=== PATIENT | female | born 1990 | race Hispanic/Latino ===

== ENCOUNTER 2023-01-12 19:19 | Emergency (ER) | payer MEDICAID, OTHER ==
[~2023-01-12] VITALS: Ht 162.6 cm; Wt 62.1 kg
[2023-01-12] MEDS ORDERED: ONDANSETRON 4MG INJ IV ONE (19:30)
[2023-01-12] MEDS ORDERED: MORPHINE 4 MG SYG IVP ONE (19:30)
[2023-01-12] MEDS ORDERED: ACETAMINOPHEN 500 MG TABLET ONE (19:48)
[2023-01-12 20:00] LABS: BASOPHILS % (AUTO) 0.5 % (0.0-5.0); HEMATOCRIT 37.4 % (36-48); LYMPHOCYTES % (AUTO) 11.9 % (21.0-51.0); MEAN CORPUSCULAR HEMOGLOBIN 31.9 pg (27.0-33.0); MEAN CORPUSCULAR HGB CONC 34.8 g/dL (32.0-36.0); MEAN CORPUSCULAR VOLUME 91.9 fL (79-99); MONOCYTES % (AUTO) 5.9 % (3.0-13.0); PLATELET COUNT (AUTO) 46 K/uL (130-400); RED BLOOD CELL COUNT(AUTO) 4.07 MIL/uL (4.00-5.50); RED CELL DISTRIBUTION WIDTH 12.1 % (11.0-15.5)
[2023-01-12] MEDS ORDERED: 0.9%NACL 1000ML 1,000 ML IV ONE (20:00)
[2023-01-12] MEDS ORDERED: IBUPROFEN 400 MG TABLET PO ONE (20:00)
[2023-01-12 20:16] LABS: CREATININE 0.8 mg/dL (0.5-1.5); POTASSIUM 3.2 mmol/L (3.5-5.1)
[2023-01-12 20:20] LABS: ALBUMIN 2.9 g/dL (3.5-5.0); TOTAL PROTEIN, SERUM 5.9 g/dL (6.0-8.3)
[2023-01-12] MEDS ORDERED: MORPHINE 4 MG SYG IVP SCH (21:00)
[2023-01-12 21:08] LABS: APPEARANCE,URINE CLEAR (CLEAR); BACTERIA,URINE RARE /HPF (None Seen); BILIRUBIN,URINE NEGATIVE (NEGATIVE); COLOR,URINE YELLOW (YELLOW); GLUCOSE, URINE (UA) NEGATIVE (NEGATIVE); KETONES,URINE 60 mg/dL (NEGATIVE); LEUKOCYTE ESTERASE ,URINE NEGATIVE Leu/uL (NEGATIVE); MUCUS,URINE FEW LPF (None Seen); NITRATE,URINE NEGATIVE (NEGATIVE); PH,URINE 6.5 (5.0-8.0); PROTEIN,URINE 70 mg/dL (NEGATIVE); SQUAMOUS EPITHELIAL CELL,UR FEW /HPF (0-2); UROBILINOGEN,URINE 12 mg/dL (0.2-1.0); YEAST,URINE BUDDING FEW /HPF (None Seen)
[2023-01-12 21:15] LABS: HCG,QUALITATIVE URINE NEGATIVE (NEGATIVE)
[2023-01-12 21:17] LABS: PLATELET MORPHOLOGY COMMENT MARKED DECREASE
[2023-01-12] MEDS ORDERED: ACETAMINOPHEN 500 MG TABLET PO ONE (21:30)
[2023-01-12] MEDS ORDERED: NIRM1TAB5 PO (22:13)
[2023-01-12] MEDS ORDERED: SULF1TAB42 PO (22:13)
[2023-01-12 23:35] LABS: APPEARANCE,CSF CLEAR (CLEAR); COLOR,CSF COLORLESS (COLORLESS); CSF TUBE NUMBER 1; GLUCOSE, CSF 55 mg/dL (40-70); TOTAL PROTEIN, CSF 17 mg/dL (15-45); WHITE BLOOD CELL1,CSF 0 CMM (0-5)
[2023-01-12 23:36] LABS: RED BLOOD CELL1,CSF 255 CMM (0-0)
[2023-01-12 23:53] LABS: APPEARANCE2,CSF CLEAR (CLEAR); COLOR2,CSF COLORLESS (COLORLESS); CSF 2ND TUBE NUMBER 4
[2023-01-13] MEDS ORDERED: MECLIZINE HCL 25 MG TABLET PO ONE ×2 (00:30)
[2023-01-13] MEDS ORDERED: ONDANSETRON ODT 4MG TAB ONE (01:39)
[2023-01-13] MEDS ORDERED: ONDANSETRON ODT 4MG TAB SL ONE (02:00)
[2023-01-13] MEDS ORDERED: HYDROMORPHONE 1 MG INJ IVP ONE (02:30)
[2023-01-13] MEDS ORDERED: KETOROLAC 15MG/ML VIAL (15MG/ML) IV ONE (02:30)
[2023-01-13] MEDS ORDERED: DEXAMETHASONE SOD PHOSPHATE 4 MG/ML 1ML VIAL IVP ONE (02:30)
[2023-01-13] MEDS ORDERED: METOCLOPRAMIDE 10 MG/2 ML VIAL IVP ONE (02:30)
[2023-01-13] MEDS ORDERED: DiphenhydrAMINE HCL 50 MG/ML VIAL IVP ONE (02:30)
[2023-01-13] MEDS ORDERED: PROMETHAZINE HCL 25 MG/ML 1ML AMPULE SCH (02:30)
[2023-01-13] MEDS ORDERED: OXYC-38 PO (03:08)
[2023-01-13 03:42] VITALS: BP 95/58
== END 2023-01-13 03:34 | disposition home or self-care (01) ==
LOC: EDH 19:19
DX: U07.1 COVID-19 (principal); N39.0 Urinary tract infection, site not specified; G43.909 Migraine, unspecified, not intractable, without status migrainosus
CPT/HCPCS: 99285; 96374; 96361; 87635; 96375 ×2; 82945; 83735; 84157; 80053; 85025; 89051 ×2; 87040 ×2; 87205; 87804 ×2; 83605; 87147; 81001; 81025; 36415; 87071; 87880; 70450; C9803; J7030; J2405; J2270; J1100; J1200; J2550; J2765; J1885

== ENCOUNTER 2023-01-15 16:05 | Inpatient (IN) | payer OTHER ==
[~2023-01-15] VITALS: Ht 152.4 cm; Wt 69.7 kg
[~2023-01-15 16:05] MED LIST: NIRM1TAB5 PO; OXYC-38 PO; SULF1TAB42 PO
[2023-01-15] MEDS ORDERED: ZOSYN 3.375GM+NS 50ML 50 ML IVPB STA (16:52)
[2023-01-15] MEDS ORDERED: PROCHLORPERAZINE EDISYLATE 5 MG/ML 2 ML VIAL IVP ONE (17:00)
[2023-01-15] MEDS ORDERED: DiphenhydrAMINE HCL 50 MG/ML VIAL IV ONE (17:00)
[2023-01-15] MEDS ORDERED: 0.9%NACL 1000ML 1,365 ML IV ONE ×2 (17:00→19:30)
[2023-01-15] MEDS ORDERED: ACETAMINOPHEN 650 MG SUPPOSITORY RC ONE (17:00)
[2023-01-15 17:18] LABS: BASOPHILS % (AUTO) 0.5 % (0.0-5.0); EOSINOPHILS % (AUTO) 0.1 % (0.0-8.0); HEMATOCRIT 35.7 % (36-48); LYMPHOCYTES % (AUTO) 11.1 % (21.0-51.0); MEAN CORPUSCULAR HEMOGLOBIN 32.1 pg (27.0-33.0); MEAN CORPUSCULAR HGB CONC 34.7 g/dL (32.0-36.0); MEAN CORPUSCULAR VOLUME 92.5 fL (79-99); MONOCYTES % (AUTO) 1.7 % (3.0-13.0); NEUTROPHILS % (AUTO) 81.6 % (40.0-77.0); PLATELET COUNT (AUTO) 25 K/uL (130-400); RED BLOOD CELL COUNT(AUTO) 3.86 MIL/uL (4.00-5.50); RED CELL DISTRIBUTION WIDTH 12.7 % (11.0-15.5); WHITE BLOOD COUNT (AUTO) 7.7 K/uL (4.8-10.8)
[2023-01-15 17:31] LABS: CREATININE 0.9 mg/dL (0.5-1.5); POTASSIUM 3.3 mmol/L (3.5-5.1)
[2023-01-15] MEDS ORDERED: PROCHLORPERAZINE 10MG/2ML INJ ONE (17:32)
[2023-01-15 17:36] LABS: ALBUMIN 2.4 g/dL (3.5-5.0); TOTAL PROTEIN, SERUM 5.4 g/dL (6.0-8.3)
[2023-01-15 19:22] LABS: APPEARANCE,URINE CLOUDY (CLEAR); BILIRUBIN,URINE NEGATIVE (NEGATIVE); COLOR,URINE YELLOW (YELLOW); GLUCOSE, URINE (UA) NEGATIVE (NEGATIVE); KETONES,URINE 10 mg/dL (NEGATIVE); LEUKOCYTE ESTERASE ,URINE NEGATIVE Leu/uL (NEGATIVE); NITRATE,URINE NEGATIVE (NEGATIVE); OCCULT BLOOD,URINE SMALL (NEGATIVE); PH,URINE 5.5 (5.0-8.0); PROTEIN,URINE 20 mg/dL (NEGATIVE); UROBILINOGEN,URINE 0.2 mg/dL (0.2-1.0)
[2023-01-15 19:29] LABS: BACTERIA,URINE RARE /HPF (None Seen); RBC,URINE 0-1 /HPF (0-1); SQUAMOUS EPITHELIAL CELL,UR MOD /HPF (0-2); YEAST,URINE BUDDING FEW /HPF (None Seen)
[2023-01-15] MEDS ORDERED: HYDROMORPHONE 1 MG INJ IV PRN (19:30)
[2023-01-15] MEDS ORDERED: MORPHINE 2 MG SYG IV PRN (19:30)
[2023-01-15] MEDS ORDERED: KETOROLAC 30MG VIAL (30MG/ML) IVP ONE (19:30)
[2023-01-15] MEDS ORDERED: ACETAMINOPHEN 325 MG TAB PO PRN ×2 (19:30)
[2023-01-15 19:41] LABS: ABG OXYGEN SATURATION 87.1 % (95.0-99.0); BASE EXCESS,VENOUS BLOOD GAS -2.2 (-2.0-3.0); HCO3,VENOUS BLOOD GAS 20.5 (21.0-28.0); PCO2,VENOUS BLOOD GAS 30 (32-45); PH,VENOUS BLOOD GAS 7.454 (7.350-7.450)
[2023-01-15 19:43] LABS: HCG,QUALITATIVE URINE NEGATIVE (NEGATIVE)
[2023-01-15 20:00] LABS: AMPHET/METH SCREEN,URINE NEGATIVE (NEGATIVE); BARBITURATE SCREEN, URINE NEGATIVE (NEGATIVE); BENZODIAZEPINES SCREEN,URINE NEGATIVE (NEGATIVE); CANNABINOID SCREEN,URINE POSITIVE (NEGATIVE); COCAINE SCREEN,URINE NEGATIVE (NEGATIVE); OPIATE SCREEN,URINE NEGATIVE (NEGATIVE); PHENCYCLIDINE SCREEN,URINE NEGATIVE (NEGATIVE)
[2023-01-15] MEDS ORDERED: POTASSIUM CHLORIDE 20MEQ/100ML 100 ML IV PRN (20:00)
[2023-01-15] MEDS ORDERED: LIDOCAINE HCL-MPF 1% 2ML VIAL IV PRN (20:00)
[2023-01-15] MEDS ORDERED: MAGNESIUM 2GM PREMIX 50ML 50 ML IV PRN (20:00)
[2023-01-15 20:07] LABS: INR 1.13 (0.85-1.15); PROTHROMBIN TIME 12.2 SEC (9.6-11.6)
[2023-01-15 20:09] LABS: PARTIAL THROMBOPLASTIN TIME 37.7 SEC (26.3-35.5)
[2023-01-15] MEDS: CEFTRIAXONE 1G VIAL IV SCH (20:25)
[2023-01-15] MEDS: 0.9%NACL 1000ML 1,000 ML IV SCH (20:25)
[2023-01-15] MEDS: DOXYCYCLINE 100MG+NS 250ML 250 ML IV SCH (20:25)
[2023-01-15] MEDS: POTASSIUM CHLORIDE 10% ELIXIR 20 MEQ/15 ML UDCUP PO PRN ×2 (20:52→23:13)
[2023-01-15] MEDS: FAMOTIDINE 20MG VIAL IV SCH (20:53)
[2023-01-15] MEDS ORDERED: NOREPINEPHRIN 4MG/NS 250ML 250 ML IV ONE (21:09)
[2023-01-15] MEDS: NOREPINEPHRIN 4MG/NS 250ML 250 ML IV SCH ×2 (21:30→22:04)
[2023-01-15] MEDS ORDERED: NOREPINEPHRIN 4MG/NS 250ML 250 ML IV SCH (21:30)
[2023-01-15] MEDS ORDERED: ALBUMIN (HUMAN) 25% 100 ML IV SCH (21:30)
[2023-01-16] VITALS (75 sets, daily range): BP systolic 86–129; BP diastolic 44–87
[2023-01-16] MEDS: ONDANSETRON 4MG INJ IV PRN (03:02)
[2023-01-16 04:49] LABS: BASOPHILS % (AUTO) 0.4 % (0.0-5.0); EOSINOPHILS % (AUTO) 0.1 % (0.0-8.0); HEMATOCRIT 31.4 % (36-48); LYMPHOCYTES % (AUTO) 13.9 % (21.0-51.0); MEAN CORPUSCULAR HEMOGLOBIN 31.7 pg (27.0-33.0); MEAN CORPUSCULAR HGB CONC 34.7 g/dL (32.0-36.0); MEAN CORPUSCULAR VOLUME 91.3 fL (79-99); MONOCYTES % (AUTO) 2.3 % (3.0-13.0); NEUTROPHILS % (AUTO) 78.9 % (40.0-77.0); PLATELET COUNT (AUTO) 28 K/uL (130-400); RED BLOOD CELL COUNT(AUTO) 3.44 MIL/uL (4.00-5.50); RED CELL DISTRIBUTION WIDTH 12.8 % (11.0-15.5); WHITE BLOOD COUNT (AUTO) 9.5 K/uL (4.8-10.8)
[2023-01-16 05:06] LABS: CREATININE 0.7 mg/dL (0.5-1.5); MAGNESIUM 1.8 mg/dL (1.80-2.40); PHOSPHORUS 1.6 mg/dL (2.5-4.9)
[2023-01-16] MEDS: KCL 20 MEQ ERTAB PO PRN ×2 (05:33→09:43)
[2023-01-16] MEDS: DOXYCYCLINE 100MG+NS 250ML 250 ML IV SCH ×2 (07:41→19:46)
[2023-01-16] MEDS: FAMOTIDINE 20MG VIAL IV SCH ×2 (07:41→19:46)
[2023-01-16] MEDS: 0.9%NACL 1000ML 1,000 ML IV SCH ×3 (07:42→23:55)
[2023-01-16] MEDS: NOREPINEPHRIN 4MG/NS 250ML 250 ML IV SCH (07:42)
[2023-01-16 09:09] LABS: ACETAMINOPHEN 11 mcg/mL (10-30)
[2023-01-16 09:10] LABS: ALBUMIN 1.9 g/dL (3.5-5.0); BILIRUBIN,DIRECT 0.8 mg/dL (0.0-0.3); TOTAL PROTEIN, SERUM 4.4 g/dL (6.0-8.3)
[2023-01-16 09:28] LABS: SALICYLATE < 2.8 mg/dL (2.8-20.0)
[2023-01-16] MEDS: KETOROLAC 15MG/ML VIAL (15MG/ML) IV PRN (14:43)
[2023-01-16] MEDS: PROCHLORPERAZINE 10MG/2ML INJ IV PRN (14:45)
[2023-01-16] MEDS: DiphenhydrAMINE HCL 50 MG/ML VIAL IV PRN (14:46)
[2023-01-16] MEDS: CEFTRIAXONE 1G VIAL IV SCH (19:46)
[2023-01-17] VITALS (14 sets, daily range): BP systolic 96–120; BP diastolic 52–72
[2023-01-17] MEDS: KETOROLAC 15MG/ML VIAL (15MG/ML) IV PRN ×2 (03:02→14:07)
[2023-01-17 03:27] LABS: BASOPHILS % (AUTO) 0.3 % (0.0-5.0); EOSINOPHILS % (AUTO) 0.2 % (0.0-8.0); HEMATOCRIT 29.3 % (36-48); LYMPHOCYTES % (AUTO) 24.7 % (21.0-51.0); MEAN CORPUSCULAR HEMOGLOBIN 31.7 pg (27.0-33.0); MEAN CORPUSCULAR HGB CONC 34.5 g/dL (32.0-36.0); MEAN CORPUSCULAR VOLUME 91.8 fL (79-99); MONOCYTES % (AUTO) 2.6 % (3.0-13.0); NEUTROPHILS % (AUTO) 69.6 % (40.0-77.0); PLATELET COUNT (AUTO) 36 K/uL (130-400); RED BLOOD CELL COUNT(AUTO) 3.19 MIL/uL (4.00-5.50); RED CELL DISTRIBUTION WIDTH 13.2 % (11.0-15.5); WHITE BLOOD COUNT (AUTO) 6.2 K/uL (4.8-10.8)
[2023-01-17 03:55] LABS: ALBUMIN 1.7 g/dL (3.5-5.0); CREATININE 0.5 mg/dL (0.5-1.5); MAGNESIUM 2.4 mg/dL (1.80-2.40); PHOSPHORUS 1.6 mg/dL (2.5-4.9); POTASSIUM 3.5 mmol/L (3.5-5.1); TOTAL PROTEIN, SERUM 4.2 g/dL (6.0-8.3)
[2023-01-17] MEDS: DiphenhydrAMINE HCL 50 MG/ML VIAL IV PRN ×2 (04:42→14:06)
[2023-01-17] MEDS: PROCHLORPERAZINE 10MG/2ML INJ IV PRN ×2 (04:42→14:07)
[2023-01-17] MEDS ORDERED: POTASSIUM PHOS 15 mMOL+NS250ML 250 ML IV PRN (07:30)
[2023-01-17] MEDS: FAMOTIDINE 20MG VIAL IV SCH ×2 (08:29→19:45)
[2023-01-17] MEDS: KCL 20 MEQ ERTAB PO PRN ×2 (08:29→10:27)
[2023-01-17] MEDS: 0.9%NACL 1000ML 1,000 ML IV SCH ×2 (08:29→21:38)
[2023-01-17] MEDS: DOXYCYCLINE 100MG+NS 250ML 250 ML IV SCH ×2 (08:29→19:10)
[2023-01-17 15:43] LABS: RAPID PLASMA REAGIN NONREACTIVE (NONREACTIVE)
[2023-01-17] MEDS: CEFTRIAXONE 1G VIAL IV SCH (19:14)
[2023-01-17] MEDS: ONDANSETRON 4MG INJ IV PRN (19:16)
[2023-01-17] MEDS: TOPIRAMATE 25 MG TABLET PO SCH (19:45)
[2023-01-18 04:20] VITALS: BP 108/71
[2023-01-18 05:12] LABS: HEPATITIS A ANTIBODY IGM Negative (Negative); HEPATITIS B CORE IGM Negative (Negative); HEPATITIS Bs ANTIGEN SCREEN P Negative (Negative); HEPATITIS C VIRUS ANTIBODY Non Reactive (Non Reactive)
[2023-01-18] MEDS: 0.9%NACL 1000ML 1,000 ML IV SCH ×3 (05:46→21:16)
[2023-01-18 06:00] LABS: BASOPHILS % (AUTO) 0.6 % (0.0-5.0); EOSINOPHILS % (AUTO) 0.6 % (0.0-8.0); HEMATOCRIT 30.3 % (36-48); LYMPHOCYTES % (AUTO) 36.2 % (21.0-51.0); MEAN CORPUSCULAR HEMOGLOBIN 31.4 pg (27.0-33.0); MEAN CORPUSCULAR HGB CONC 33.7 g/dL (32.0-36.0); MEAN CORPUSCULAR VOLUME 93.2 fL (79-99); MONOCYTES % (AUTO) 3.3 % (3.0-13.0); NEUTROPHILS % (AUTO) 55.6 % (40.0-77.0); PLATELET COUNT (AUTO) 40 K/uL (130-400); RED BLOOD CELL COUNT(AUTO) 3.25 MIL/uL (4.00-5.50); RED CELL DISTRIBUTION WIDTH 13.6 % (11.0-15.5); WHITE BLOOD COUNT (AUTO) 7.9 K/uL (4.8-10.8)
[2023-01-18 06:21] LABS: CREATININE 0.6 mg/dL (0.5-1.5); POTASSIUM 3.9 mmol/L (3.5-5.1); TOTAL PROTEIN, SERUM 4.8 g/dL (6.0-8.3)
[2023-01-18] MEDS: DOXYCYCLINE 100MG+NS 250ML 250 ML IV SCH ×2 (06:45→18:35)
[2023-01-18 08:00] VITALS: BP 104/62
[2023-01-18] MEDS: FAMOTIDINE 20MG VIAL IV SCH ×2 (08:47→21:16)
[2023-01-18] MEDS: SUMATRIPTAN SUCCINATE 25 MG TABLET PO PRN ×3 (08:53→18:42)
[2023-01-18 11:59] VITALS: BP 118/72
[2023-01-18 16:00] VITALS: BP 124/83
[2023-01-18] MEDS: CEFTRIAXONE 1G VIAL IV SCH (18:34)
[2023-01-18 19:00] VITALS: BP 125/79
[2023-01-18] MEDS: TOPIRAMATE 25 MG TABLET PO SCH (21:16)
[2023-01-19] VITALS: BP 122/80
[2023-01-19 04:00] VITALS: BP 114/70
[2023-01-19] MEDS: DOXYCYCLINE 100MG+NS 250ML 250 ML IV SCH (05:48)
[2023-01-19] MEDS: KETOROLAC 15MG/ML VIAL (15MG/ML) IV PRN (05:51)
[2023-01-19 06:14] LABS: BASOPHILS % (AUTO) 0.6 % (0.0-5.0); EOSINOPHILS % (AUTO) 1.4 % (0.0-8.0); HEMATOCRIT 30.6 % (36-48); LYMPHOCYTES % (AUTO) 32.1 % (21.0-51.0); MEAN CORPUSCULAR HEMOGLOBIN 31.1 pg (27.0-33.0); MEAN CORPUSCULAR VOLUME 94.2 fL (79-99); MONOCYTES % (AUTO) 5.5 % (3.0-13.0); NEUTROPHILS % (AUTO) 57.4 % (40.0-77.0); PLATELET COUNT (AUTO) 54 K/uL (130-400); RED BLOOD CELL COUNT(AUTO) 3.25 MIL/uL (4.00-5.50); RED CELL DISTRIBUTION WIDTH 13.8 % (11.0-15.5); WHITE BLOOD COUNT (AUTO) 8.7 K/uL (4.8-10.8)
[2023-01-19 06:27] LABS: ALBUMIN 2.1 g/dL (3.5-5.0); CREATININE 0.5 mg/dL (0.5-1.5); POTASSIUM 3.7 mmol/L (3.5-5.1); TOTAL PROTEIN, SERUM 5.3 g/dL (6.0-8.3)
[2023-01-19 07:51] VITALS: BP 119/76
[2023-01-19] MEDS: FAMOTIDINE 20MG VIAL IV SCH (09:33)
[2023-01-19] MEDS: 0.9%NACL 1000ML 1,000 ML IV SCH (09:34)
[2023-01-19] MEDS ORDERED: SUMA25TA25 PO (11:27)
[2023-01-19] MEDS ORDERED: TOPI25TA42 PO (11:27)
[2023-01-19] MEDS ORDERED: DOXY100T2 PO (11:27)
[2023-01-19 11:42] VITALS: BP 120/86
[2023-01-20 15:14] LABS: ROCKY MT SPOTTED FEVER IGG <1:64 (Neg:<1:64)
== END 2023-01-19 15:50 | disposition home or self-care (01) | DRG 871 ==
LOC: EDH 16:05 → EDHIP 19:29 → 2CH 01-16 01:26 → 3DH 01-17 15:52
PROVIDERS: ADMIT Internal Medicine; ATTEND Internal Medicine
DX: A41.9 Sepsis, unspecified organism (principal); R65.21 Severe sepsis with septic shock; D61.818 Other pancytopenia; A75.9 Typhus fever, unspecified; Z20.822 Contact with and (suspected) exposure to COVID-19; E87.6 Hypokalemia; D69.6 Thrombocytopenia, unspecified; G43.909 Migraine, unspecified, not intractable, without status migrainosus; F41.9 Anxiety disorder, unspecified; G89.29 Other chronic pain
CPT/HCPCS: 36415; 36600; 70450; 71045; 76705; 80048; 80053; 80076; 80305; 81001; 81025; 82525; 82550; 82803; 83540; 83550; 83605; 83690; 83735; 84100; 84145; 84484; 85007; 85025; 85610; 85730; 86592; 86701; 86705; 86709; 86757; 86850; 86900; 86901; 87040; 87088; 87340; 87390; 87635; 87804; 93005; 99291; G0378; G0481; J0696; J0780; J1200; J1885; J2405; J2543; J3475; J3480; J3490; J7030

== ENCOUNTER 2023-10-09 21:50 | Inpatient (IN) | payer MEDICAID ==
[~2023-10-09] VITALS: Ht 162.6 cm; Wt 83.9 kg
[~2023-10-09 21:50] MED LIST changes: +DOXY100T2 PO; -NIRM1TAB5 PO; -OXYC-38 PO; -SULF1TAB42 PO; +SUMA25TA25 PO; +TOPI25TA42 PO
[2023-10-09] MEDS ORDERED: PROMETHAZINE HCL 25 MG/ML 1ML AMPULE IM PRN (22:30)
[2023-10-09] MEDS ORDERED: OXYTOCIN-LR 30 UNITS/500ML 500 ML IV SCH ×2 (22:30→23:00)
[2023-10-09] MEDS ORDERED: LACTATED RINGERS 1000ML 1,000 ML IV PRN (22:30)
[2023-10-09] MEDS ORDERED: MEPERIDINE-PF 50 MG/ML SYG SQ PRN (22:30)
[2023-10-09 22:59] LABS: APPEARANCE,URINE CLEAR (CLEAR); BILIRUBIN,URINE NEGATIVE (NEGATIVE); COLOR,URINE COLORLESS (YELLOW); GLUCOSE, URINE (UA) NEGATIVE (NEGATIVE); KETONES,URINE NEGATIVE (NEGATIVE); LEUKOCYTE ESTERASE ,URINE NEGATIVE Leu/uL (NEGATIVE); NITRATE,URINE NEGATIVE (NEGATIVE); OCCULT BLOOD,URINE NEGATIVE (NEGATIVE); PROTEIN,URINE NEGATIVE (NEGATIVE); UROBILINOGEN,URINE 0.2 mg/dL (0.2-1.0)
[2023-10-09 23:02] LABS: ADD UA MICROSCOPIC NO
[2023-10-09 23:47] LABS: MEAN CORPUSCULAR HEMOGLOBIN 29.2 pg (27.0-33.0); MEAN CORPUSCULAR VOLUME 91.1 fL (79-99); RED BLOOD CELL COUNT(AUTO) 3.84 MIL/uL (4.00-5.50); RED CELL DISTRIBUTION WIDTH 14.3 % (11.0-15.5); WHITE BLOOD COUNT (AUTO) 6.8 K/uL (4.8-10.8)
[2023-10-10 00:02] LABS: HIV 1&2 ANTIBODY Non-Reactive (Negative); HIV-1 p24 Antigen Non-Reactive (Negative)
[2023-10-10] MEDS ORDERED: OXYTOCIN-LR 30 UNITS/500ML 500 ML IV SCH ×2 (06:00→14:00)
[2023-10-10] MEDS ORDERED: LACTATED RINGERS 500 ML 500 ML IV PRN (07:30)
[2023-10-10] MEDS ORDERED: NALOXONE HCL 0.4 MG/1 ML ML IV PRN (07:30)
[2023-10-10] MEDS ORDERED: EPHEDRINE SULFATE 50 MG/ML AMPULE IVP PRN (07:30)
[2023-10-10] MEDS ORDERED: ROPIVACAINE 0.2% 100ML VIAL 100 ML EP SCH (07:30)
[2023-10-10 10:28] LABS: RAPID PLASMA REAGIN NONREACTIVE (NONREACTIVE)
[2023-10-10] MEDS ORDERED: LIDOCAINE HCL 1% 20 ML VIAL ONE (11:44)
[2023-10-10] MEDS ORDERED: ACETAMINOPHEN 325 MG TAB PO PRN (14:00)
[2023-10-10] MEDS ORDERED: BENZOCAINE/LANOLIN/ALOE VERA 60 ML AEROSOL TP PRN (14:00)
[2023-10-10] MEDS ORDERED: DIPH,PERTUSS(ACELL),TET VAC/PF 0.5 ML VIAL IM PRN (14:00)
[2023-10-10] MEDS ORDERED: ACETAMINOPHEN WITH CODEINE 1 TAB TAB PO PRN (14:00)
[2023-10-10] MEDS ORDERED: LANOLIN 30GM OINTMENT TP PRN (14:00)
[2023-10-10] MEDS ORDERED: WITCH HAZEL 1 PAD TP PRN (14:00)
[2023-10-10] MEDS ORDERED: MEASLES/MUMPS/RUBELLA VACCINE, LIVE 0.5 ML/VIAL SQ PRN (14:00)
[2023-10-10 17:25] VITALS: BP 131/68; PULSE 89; RESP 19
[2023-10-10] MEDS: IBUPROFEN 600 MG TABLET PO PRN (17:47)
[2023-10-10] MEDS ORDERED: PREN1TAB26 PO (18:24)
[2023-10-10 19:18] VITALS: BP 105/55; PULSE 87; RESP 21
[2023-10-10] MEDS: DOCUSATE SODIUM 100 MG CAP PO SCH (20:19)
[2023-10-10 23:17] VITALS: BP 95/51; PULSE 88; RESP 22
[2023-10-11 04:23] VITALS: BP 111/56; PULSE 103; RESP 25
[2023-10-11 06:41] LABS: HEMATOCRIT 31.6 % (36-48); MEAN CORPUSCULAR HEMOGLOBIN 29.2 pg (27.0-33.0); MEAN CORPUSCULAR HGB CONC 31.6 g/dL (32.0-36.0); MEAN CORPUSCULAR VOLUME 92.1 fL (79-99); RED BLOOD CELL COUNT(AUTO) 3.43 MIL/uL (4.00-5.50); RED CELL DISTRIBUTION WIDTH 14.2 % (11.0-15.5); WHITE BLOOD COUNT (AUTO) 10.8 K/uL (4.8-10.8)
[2023-10-11 07:32] VITALS: BP 104/62; PULSE 92; RESP 18
[2023-10-11] MEDS: DOCUSATE SODIUM 100 MG CAP PO SCH (08:40)
[2023-10-11] MEDS: IBUPROFEN 600 MG TABLET PO PRN (08:41)
[2023-10-11 12:14] VITALS: BP 114/62; PULSE 89; RESP 18
== END 2023-10-11 16:40 | disposition home or self-care (01) | DRG 560 ==
LOC: LDH 21:50 → WSH 10-10 17:25
PROVIDERS: ADMIT Obstetrics & Gynecology; ATTEND Obstetrics & Gynecology
PROC: 10E0XZZ Delivery of Products of Conception, External Approach (ICD-10-PCS; principal; 2023-10-10)
PROC: 10907ZC Drainage of Amniotic Fluid, Therapeutic from Products of Conception, Via Natural or Artificial Opening (ICD-10-PCS; 2023-10-10)
PROC: 3E033VJ Introduction of Other Hormone into Peripheral Vein, Percutaneous Approach (ICD-10-PCS; 2023-10-10)
DX: O80 Encounter for full-term uncomplicated delivery (principal); Z37.0 Single live birth; Z3A.38 38 weeks gestation of pregnancy
CPT/HCPCS: 36415; 81003; 85027; 86592; 86701; 86850; 86900; 86901; 87340; 87390; G0378; J2175; J2550

== ENCOUNTER 2024-01-20 08:35 | Day surgery (SDC) | payer OTHER, MEDICAID ==
[2024-01-18 15:14] LABS: BASOPHILS # (AUTO) 0.04 K/uL (0.00-0.20); BASOPHILS % (AUTO) 0.9 % (0.0-5.0); EOSINOPHILS # (AUTO) 0.13 K/uL (0.00-0.70); IMMATURE GRANULOCYTE ABSOLUTE 0.02 K/uL (0-1); LYMPHOCYTES % (AUTO) 46.1 % (21.0-51.0); MEAN CORPUSCULAR HEMOGLOBIN 30.4 pg (27.0-33.0); MEAN CORPUSCULAR HGB CONC 33.4 g/dL (32.0-36.0); MEAN CORPUSCULAR VOLUME 91.1 fL (79-99); MONOCYTES # (AUTO) 0.4 K/uL (0.1-1.0); MONOCYTES % (AUTO) 8.8 % (3.0-13.0); NEUTROPHILS # (AUTO) 1.8 K/uL (1.8-7.7); NEUTROPHILS % (AUTO) 40.7 % (40.0-77.0); PLATELET COUNT (AUTO) 235 K/uL (130-400); RED CELL DISTRIBUTION WIDTH 14.7 % (11.0-15.5); WHITE BLOOD COUNT (AUTO) 4.3 K/uL (4.8-10.8)
[2024-01-18 15:44] VITALS: BP 119/76; PULSE 71; RESP 18
[2024-01-20] VITALS (18 sets, daily range): BP systolic 106–146; BP diastolic 54–93; PULSE 50–75; RESP 12–20
[~2024-01-20] VITALS: Ht 162.6 cm; Wt 71.2 kg
[2024-01-20] MEDS: LACTATED RINGERS 1000ML 1,000 ML IV ONE (09:44)
[2024-01-20] MEDS: CEFAZOLIN SODIUM 2 GM VIAL ONE (09:45)
[2024-01-20] MEDS ORDERED: LIDOCAINE PF 100MG/5ML (2%) SYRINGE 5ML ONE (10:12)
[2024-01-20] MEDS ORDERED: MIDAZOLAM HCL 1 MG/ML 2ML VIAL ONE (10:12)
[2024-01-20] MEDS ORDERED: DEXAMETHASONE SOD PHOSPHATE 10MG/ML 1ML VIAL ONE (10:12)
[2024-01-20] MEDS ORDERED: NEOSTIGMINE METHYLSULFATE 1MG/ML IV ONE (10:13)
[2024-01-20] MEDS ORDERED: ONDANSETRON 4MG INJ ONE (10:13)
[2024-01-20] MEDS ORDERED: GLYCOPYRROLATE 0.2 MG/ML 5 ML VIAL ONE (10:13)
[2024-01-20] MEDS ORDERED: ROCURONIUM BROMIDE 10MG/1ML 5ML VL ONE (10:13)
[2024-01-20] MEDS ORDERED: PROPOFOL 10 MG/ML 20ML VIAL IV ONE (10:13)
[2024-01-20] MEDS ORDERED: FENTANYL CITRATE PF 50 MCG/1 ML 2ML VIAL ONE (10:34)
[2024-01-20] MEDS: BUPIVACAINE/PF 0.25% 30ML VIAL IJ ONE (10:40)
[2024-01-20] MEDS: KETOROLAC 30MG VIAL (30MG/ML) ONE (11:40)
== END 2024-01-20 13:50 | disposition home or self-care (01) ==
LOC: DAH 08:35
PROVIDERS: ATTEND Obstetrics & Gynecology
DX: Z30.2 Encounter for sterilization (principal); Z79.01 Long term (current) use of anticoagulants; Z79.899 Other long term (current) drug therapy
CPT/HCPCS: 84703; 85025; 86850; 86900; 86901; 36415; 58670; A6260; A4663; A4351; A4606; A4215 ×2; J7120; J3010; J1100; J0665; J3490 ×2; J2001; J2250; J2704; J2405; J1885; J2710; J0690; C1769 ×3; A4649; A4223; A4222; A4221; A4600; A4510; G0168